=== PATIENT | female | born 1990 ===

== ENCOUNTER 2018-09-16 07:49 | Outpatient (CLI) | payer OTHER | END 2018-09-16 07:52 | disposition home or self-care (01) | LOC: TOM 07:49 | DX: R91.1 Solitary pulmonary nodule (principal) ==

== ENCOUNTER 2019-01-18 19:27 | Inpatient (IN) | payer OTHER ==
[~2019-01-18] VITALS: Ht 149.9 cm; Wt 45.4 kg
[2019-01-18] MEDS ORDERED: PANADOL EXTRA500 MG (19:52)
[2019-01-18] MEDS ORDERED: ZANTAC150 M3 (19:53)
[2019-01-22] MEDS ORDERED: CIPRO500 MG PO (13:22)
== END 2019-01-22 14:59 | disposition home or self-care (01) | DRG 373 ==
LOC: ER 19:27 → SURH 01-19 07:22
PROVIDERS: ADMIT Student in an Organized Health Care Education/Training Program
PROC: 8E0ZXY6 Isolation (ICD-10-PCS; principal; 2019-01-21)
DX: A02.0 Salmonella enteritis (principal)

== ENCOUNTER 2020-02-14 17:48 | Emergency (ER) | payer OTHER ==
[~2020-02-14] VITALS: Ht 149.9 cm; Wt 45.4 kg
[~2020-02-14 17:48] MED LIST: CIPRO500 MG PO; PANADOL EXTRA500 MG; ZANTAC150 M3
[2020-02-14] MEDS ORDERED: ORPHENADRINE C100 MG PO (20:48)
[2020-02-14] MEDS ORDERED: KETO10TA2 PO (20:48)
== END 2020-02-14 21:14 | disposition home or self-care (01) ==
LOC: ER 17:48
DX: S30.0XXA Contusion of lower back and pelvis, initial encounter (principal); W10.8XXA Fall (on) (from) other stairs and steps, initial encounter; Y93.89 Activity, other specified; Y92.69 Other specified industrial and construction area as the place of occurrence of the external cause; Y99.8 Other external cause status